=== PATIENT | male | born 1985 | race African-American/Black ===

== ENCOUNTER 2023-01-04 19:18 | Emergency (ER) | payer SELFPAY ==
[2023-01-04] MEDS ORDERED: Nitroglycerin 2% Ointment 1 INCH/1 GM Packet ONE (20:02)
[2023-01-04 20:27] LABS: #Basophils 0.1 thou/uL (0.0-0.2); #Eosinphils 0.3 thou/uL (0.0-0.7); #Lymphocytes 3.2 thou/uL (1.20-3.40); #Monocytes 0.2 thou/uL (0.11-0.59); #Neutrophils 3.1 thou/uL (1.40-6.50); %Basophils 1.5 % (0.0-1.0); %Eosinophils 4.1 % (0.0-10.0); %Lymphocytes 46.7 % (21.0-51.0); %Neutrophils 44.7 % (42.0-75.0); Hemoglobin 14.3 g/dL (14.0-18.0); Mean Corpuscular Volume 87.6 fl (78.0-98.0); Mean Platelet Volume 8.6 fL (7.4-10.4); Platelet Count 202 10x3/uL (130-400); Red Blood Cell (RBC) Count 5.09 mill/uL (4.70-6.10); White Blood Cell (WBC) Count 6.9 10x3/uL (4.8-10.8)
[2023-01-04 20:28] LABS: ALT (SGPT) 49 U/L (8-55); AST (SGOT) 29 U/L (5-34); Alkaline Phosphatase 115 U/L (40-110); Anion Gap 14 mmol/L (10-20); BUN (Urea Nitrogen) 10 mg/dL (8.9-20.6); Bilirubin, Total 0.3 mg/dL (0.2-1.2); Calc. Creatinine Clearance 0 mL/min (70-130); Calcium 9.2 mg/dL (7.8-10.44); Carbon Dioxide 25 mmol/L (22-29); Chloride 106 mmol/L (98-107); Estimated GFR 104; Globulin 2.6 g/dL (2.4-3.5); Glucose 113 mg/dL (70-105); Potassium 3.6 mmol/L (3.5-5.1); Protein, Total 6.6 g/dL (6.0-8.3); Sodium 141 mmol/L (136-145)
[2023-01-04] MEDS ORDERED: Nitroglycerin 0.4 MG TAB 1 EACH ONE (20:33)
[2023-01-04 21:37] LABS: Troponin I Less than 0.010 ng/mL (< 0.028)
[2023-01-04] MEDS ORDERED: Aspirin Chewable 81 MG TAB ONE (21:43)
== END 2023-01-04 21:49 ==
LOC: BURERS 19:18 → EEVIPCON 19:18 → BURERS 21:49
DX: R07.89 Other chest pain (principal); I11.0 Hypertensive heart disease with heart failure; I50.9 Heart failure, unspecified; Z79.899 Other long term (current) drug therapy
CPT/HCPCS: 71045; 80053; 83880; 84484; 85025; 93005